=== PATIENT | female | born 1980 | race Caucasian/White ===

== ENCOUNTER 2018-07-28 22:05 | Emergency (ER) | payer OTHER ==
--- NOTE | 2018-07-28 22:14 | EDPHY ---
H & P Stated Complaint: lower abd pain hx of cysts Time Seen by Provider: 07/28/18 22:14 HPI/ROS: HPI CHIEF COMPLAINT: Sudden-onset lower abdominal pain. HISTORY OF PRESENT ILLNESS: Patient is a 38-year-old female, denies any significant medical history except for ovarian cyst, as well as ovarian torsion. She has had 2 laparoscopic surgery to remove ovarian cyst. She is currently 12 days past her cycle. She denies being . She was having intercourse with her partner bedside developed sudden onset pelvic pain. Denies vomiting or fever. Denies back pain. Denies urinary symptoms. Pain was rather sharp stabbing intense and still persist but better after taking ibuprofen prior to arrival. Past Medical History: Denies significant medical history Past Surgical History: Laparoscopic surgery for cyst. Social History: Denies drugs alcohol tobacco. Family History: Noncontributory ROS REVIEW OF SYSTEMS: 10 Systems were reviewed and negative with the exception of the elements mentioned in the history of present illness. Exam Constitutional triage nursing summary reviewed, vital signs reviewed, awake/ alert. Eyes normal conjunctivae and sclera, EOMI, PERRLA. HENT normal inspection, atraumatic, moist mucus membranes, no epistaxis, neck supple/ no meningismus, no raccoon eyes. Respiratory clear to auscultation bilaterally, normal breath sounds, no respiratory distress, no wheezing. Cardiovascular rate normal, regular rhythm, no murmur, no edema, distal pulses normal. Gastrointestinal mild tender palpation suprapubic and right and left adnexa. no rebound, no guarding, normal bowel sounds, no distension, no pulsatile mass. Genitourinary no CVA tenderness. Musculoskeletal no midline vertebral tenderness, full range of motion, no calf swelling, no tenderness of extremities, no meningismus, good pulses, neurovascularly intact. Skin pink, warm, & dry, no rash, skin atraumatic. Neurologic awake, alert and oriented x 3, AAOx3, moves all 4 extremities equally, motor intact, sensory intact, CN II-XII intact, normal cerebellar, normal vision, normal speech. Psychiatric normal mood/affect. Heme/Lymph/Immune no lymphadenopathy. Differential Diagnosis: Differential diagnosis includes but is not limited to and in no particular order: Ruptured ovarian cyst, ovarian torsion, ectopic , , Bowel obstruction, appendicitis, gallbladder disease, diverticulitis, colitis, enteritis, perforated viscus, gastritis, GERD, esophagitis, urinary tract infection, pyelonephritis, kidney stones Medical Decision Making: Plan for this patient ultrasound pelvis to rule out ruptured ovarian cyst versus ovarian torsion. IV establishment IV fluid bolus 1 L normal saline, IV Toradol 15 mg for pain control Re-evaluation: Ultrasound pelvis shows uterine fibroid, bilateral ovarian cyst most likely hemorrhagic, additionally the right ovary there is a solitary ovarian lesion most likely a dermoid. No significant free fluid. Called to me by Dr. Ferreira. 12:30 a.m. Patient re-evaluated is resting comfortably no acute distress and is feeling much better. Pain well controlled. She would like to go home. Do recommend she follows up with OBGYN about ovarian cyst, dermoid cyst, uterine fibroid. She has an OBGYN at [place]. We discussed return precautions return emergency room worsening abdominal pain, felt pain, fever, vomiting, not doing well Source: Patient - Personal History LMP (Females 10-55): 8-14 Days Ago Current Tetanus/Diphtheria Vaccine: Yes Current Tetanus Diphtheria and Acellular Pertussis (TDAP): Yes Tetanus Vaccine Date: unsure - Medical/Surgical History Hx Asthma: No Hx Chronic Respiratory Disease: No Hx Diabetes: No Hx Cardiac Disease: No Hx Renal Disease: No Hx Cirrhosis: No Hx Alcoholism: No Hx HIV/AIDS: No Hx Splenectomy or Spleen Trauma: No Other PMH: ovarian cysts, fibriods - Social History Smoking Status: Never smoked Constitutional: Initial Vital Signs Temperature (C) 36.8 C 07/28/18 22:06 Heart Rate 72 07/28/18 22:06 Respiratory Rate 16 07/28/18 22:06 Blood Pressure 118/72 07/28/18 22:06 O2 Sat (%) 97 07/28/18 22:06 O2 Delivery Mode Room Air Allergies/Adverse Reactions: No Known Allergies Allergy (Verified 07/28/18 22:09) Home Medications: Medication Instructions Recorded NK [No Known Home Meds] 01/07/16 Medical Decision Making - Diagnostics Imaging Results: Imaging Impressions Pelvic/Renal Ultrasound 07/28/18 22:22 Impression: 1. Bilateral complex ovarian cysts with the largest on the right measuring 4.3 x 4.2 x 2.9 cm probably bilateral hemorrhagic cysts. 2. Right ovarian solid nonvascular hyperechoic 3.1 x 2.6 x 2.4 cm lesion which may represent a dermoid tumor. 3. No evidence of ovarian torsion or significant free fluid in the pelvis. 4. Large uterine leiomyoma measuring 8.1 x 8 x 7.8 cm. 5. Abnormal endometrial thickening 16 mm. Findings and recommendations discussed with Emergency Department physician, Kevin Rios MD at 23:08 hour, 07/28/2018. Final report concurs with initial preliminary interpretation. - Data Points Laboratory Results: Laboratory Results 07/28/18 22:15 07/28/18 22:15 07/28/18 07/28/18 07/28/18 23:15 22:15 22:15 WBC RBC Hgb Hct MCV MCH MCHC RDW Plt Count MPV Neut % (Auto) Lymph % (Auto) [place] % (Auto) Eos % (Auto) Baso % (Auto) Nucleat RBC Rel Count Absolute Neuts (auto) Absolute Lymphs (auto) Absolute Monos (auto) Absolute Eos (auto) Absolute Basos (auto) Absolute Nucleated RBC Immature Gran % Immature Gran # Sodium 138 mEq/L mEq/L (135-145) Potassium 4.1 mEq/L mEq/L (3.5-5.2) Chloride 102 mEq/L mEq/L (97-110) Carbon Dioxide 26 mEq/l mEq/l (22-31) Anion Gap 10 mEq/L mEq/L (6-14) BUN 15 mg/dL mg/dL (7-23) Creatinine 0.8 mg/dL mg/dL (0.6-1.0) Estimated GFR > 60 Glucose 93 mg/dL mg/dL (70-100) Calcium 9.4 mg/dL mg/dL (8.5-10.4) Total Bilirubin Conjugated Bilirubin Unconjugated Bilirubin AST ALT Alkaline Phosphatase Total Protein Albumin Lipase Beta HCG, Qual NEGATIVE Urine Color YELLOW Urine Appearance MODERATELY TURBID Urine pH 9.0 H (5.0-7.5) Ur Specific [place] 1.025 (1.002-1.030) Urine Protein NEGATIVE (NEGATIVE) Urine Ketones NEGATIVE (NEGATIVE) Urine Blood NEGATIVE (NEGATIVE) Urine Nitrate NEGATIVE (NEGATIVE) Urine Bilirubin NEGATIVE (NEGATIVE) Urine Urobilinogen NEGATIVE EU EU (0.2-1.0) Ur Leukocyte Esterase NEGATIVE (NEGATIVE) Urine Glucose NEGATIVE (NEGATIVE) 07/28/18 07/28/18 22:15 22:15 WBC 12.82 10^3/uL H 10^3/uL (3.80-9.50) RBC 4.00 10^6/uL L 10^6/uL (4.18-5.33) Hgb 12.6 g/dL g/dL (12.6-16.3) Hct 38.9 % % (38.0-47.0) MCV 97.3 fL fL (81.5-99.8) MCH 31.5 pg pg (27.9-34.1) MCHC 32.4 g/dL g/dL (32.4-36.7) RDW 13.4 % % (11.5-15.2) Plt Count 293 10^3/uL 10^3/uL (150-400) MPV 8.8 fL fL (8.7-11.7) Neut % (Auto) 64.8 % % (39.3-74.2) Lymph % (Auto) 22.7 % % (15.0-45.0) [place] % (Auto) 10.5 % % (4.5-13.0) Eos % (Auto) 1.3 % % (0.6-7.6) Baso % (Auto) 0.4 % % (0.3-1.7) Nucleat RBC Rel Count 0.0 % % (0.0-0.2) Absolute Neuts (auto) 8.31 10^3/uL H 10^3/uL (1.70-6.50) Absolute Lymphs (auto) 2.91 10^3/uL 10^3/uL (1.00-3.00) Absolute Monos (auto) 1.34 10^3/uL H 10^3/uL (0.30-0.80) Absolute Eos (auto) 0.17 10^3/uL 10^3/uL (0.03-0.40) Absolute Basos (auto) 0.05 10^3/uL 10^3/uL (0.02-0.10) Absolute Nucleated RBC 0.00 10^3/uL 10^3/uL (0-0.01) Immature Gran % 0.3 % % (0.0-1.1) Immature Gran # 0.04 10^3/uL 10^3/uL (0.00-0.10) Sodium Potassium Chloride Carbon Dioxide Anion Gap BUN Creatinine Estimated GFR Glucose Calcium Total Bilirubin 0.3 mg/dL mg/dL (0.1-1.4) Conjugated Bilirubin 0.0 mg/dL mg/dL (0.0-0.5) Unconjugated Bilirubin 0.3 mg/dL mg/dL (0.0-1.1) AST 28 IU/L IU/L (14-46) ALT 32 IU/L IU/L (9-52) Alkaline Phosphatase 44 IU/L IU/L (38-126) Total Protein 7.3 g/dL g/dL (6.3-8.2) Albumin 4.4 g/dL g/dL (3.5-5.0) Lipase 133 IU/L IU/L (23-300) Beta HCG, Qual Urine Color Urine Appearance Urine pH Ur Specific [place] Urine Protein Urine Ketones Urine Blood Urine Nitrate Urine Bilirubin Urine Urobilinogen Ur Leukocyte Esterase Urine Glucose Medications Given: Discontinued Medications Sodium Chloride (Ns) 1,000 mls @ 0 mls/hr IV EDNOW ONE; Wide Open PRN Reason: Protocol Stop: 07/28/18 22:23 Last Admin: 07/28/18 22:27 Dose: 1,000 mls Ketorolac Tromethamine (Toradol) 15 mg IVP EDNOW ONE Stop: 07/28/18 22:23 Last Admin: 07/28/18 22:26 Dose: 15 mg Departure - Departure Disposition: Home, Routine, Self-Care Clinical Impression: Ovarian cyst Condition: Good Instructions: Ovarian Cyst (ED) Additional Instructions: 1. Follow up with OBGYN 2. Return to the emergency room if worsening symptoms questions or concerns. Referrals: AMERICO JALLOH MD [Other] - As per Instructions Lawrence Ocampo MD [Medical Doctor] - As per Instructions
[2018-07-28] MEDS ORDERED: KETOROLAC 15 MG/1 ML SDV IVP ONE (22:22)
[2018-07-28] MEDS ORDERED: NS 1,000 ML IV ONE (22:22)
[2018-07-28 22:30] LABS: PLATELET COUNT 293 10^3/uL (150-400)
[2018-07-29 00:42] VITALS: BP 95/58
== END 2018-07-29 01:05 | disposition home or self-care (01) ==
DX: N83.291 Other ovarian cyst, right side (principal); N83.292 Other ovarian cyst, left side; D25.9 Leiomyoma of uterus, unspecified; R93.89 Abnormal findings on diagnostic imaging of other specified body structures
CPT/HCPCS: 96374; J1885